=== PATIENT | male | born 1985 | race Caucasian/White ===

== ENCOUNTER 2017-11-30 07:31 | Emergency (ER) | payer SELFPAY ==
[2017-11-30 07:44] VITALS: BP 132/68; PULSE 102; TEMP 100.2
[2017-11-30] MEDS ORDERED: IBUPROFEN 600 MG TAB PO STA (08:35)
[2017-11-30] MEDS ORDERED: ACETAMINOPHEN TAB 500 MG TAB PO STA (08:35)
--- NOTE | 2017-11-30 08:41 | ED ---
General Adult HPI - General Chief complaint: Back Pain/Injury Stated complaint: Back pain/cough Time Seen by Provider: 11/30/17 08:28 Source: patient, RN notes reviewed Mode of arrival: wheelchair Limitations: no limitations - History of Present Illness Initial comments: 32-year-old male presents emergency Department with chief complaint of cough and congestion low back pain fevers. He states he's been sick since Wednesday. He states he took NyQuil last night when he woke up today with a backache. He has chronic back pain and states it feels as if it flared up. He states that he has not had any other symptoms with this. He denies any nausea vomiting. He states that he is much like his chronic typical back pain. He states that he is smoker. She does admit to a cough with some production. Patient denies any other symptoms at this time. No Motrin Tylenol. Patient denies any recent shortness of breath, chest pain, abdominal pain, nausea vomiting, numbness or tingling, dysuria or hematuria, constipation or diarrhea, headaches or visual changes, or any other current symptoms. - Related Data Home Medications Medication Instructions Recorded Confirmed Acetaminophen Tab [Tylenol Tab] 650 mg PO Q6H PRN 11/30/17 11/30/17 Dm/Acetaminophen/Doxylamine [Vicks 10 ml PO Q6H PRN 11/30/17 11/30/17 Nyquil Cold & Flu Liquid] Multivitamin [Men's Multi-Vitamin] 1 tab PO DAILY 11/30/17 11/30/17 Phenylephrine/Dm/Acetaminop/GG 10 ml PO Q6H PRN 11/30/17 11/30/17 [Vicks Dayquil Severe Cold-Flu] Previous Rx's Medication Instructions Recorded Ibuprofen [Motrin] 600 mg PO Q6HR PRN #20 tab 11/30/17 Orphenadrine [Norflex] 100 mg PO Q12H #10 tablet.er 11/30/17 Allergies Allergy/AdvReac Type Severity Reaction Status Date / Time No Known Allergies Allergy Verified 11/30/17 08:04 Review of Systems ROS Statement: Those systems with pertinent positive or pertinent negative responses have been documented in the HPI. ROS Other: All systems not noted in ROS Statement are negative. Past Medical History Additional Past Medical History / Comment(s): back pain History of Any Multi-Drug Resistant Organisms: None Reported Past Surgical History: No Surgical Hx Reported Past Psychological History: No Psychological Hx Reported Smoking Status: Current every day smoker Past Alcohol Use History: Occasional Past Drug Use History: Marijuana General Exam - General Exam Comments Initial Comments: General exam: Alert, active, comfortable in no apparent distress Head: Normocephalic Eyes: Normal reaction of pupils, equal size, normal range of extraocular motion Ears: normal external ear canals, pink tympanic membranes with normal cone of light Nose: clear with pink turbinates Throat: no erythema or exudates with normal sized tonsils Neck: no masses, no nuchal rigidity Chest: no chest wall deformity Lungs: equal air entry with no crackles or wheeze CVS: S1 and S2 normal with no audible mumurs, regular rhythm Abdomen: no hepatosplenomegaly, normal bowel sounds, no guarding or rigidity Spine: no scoliosis or deformity. No vertebral tenderness. No paraspinal tenderness. Inspection. Full range of motion. Skin: no rashes Neurological: No focal deficits, tone is normal in all 4 extremities Limitations: no limitations Course Vital Signs 11/30/17 11/30/17 07:42 08:55 Temperature 100.2 F H Pulse Rate 102 H Respiratory 20 18 Rate Blood Pressure 132/68 O2 Sat by Pulse 97 Oximetry Medical Decision Making - Medical Decision Making 32-year-old male presents emergency Department chief complaint of cough and congestion. At this time patient's influenza is positive. We discussed most likely lumbar strain along with this. We'll start him on muscle relaxers and Motrin for home for the back pain. We will also informed me: The patient with Tamiflu but we did discuss [id number] treatment. We discussed return parameters and follow-up and all questions. Patient stated the Rafi is given this plan. He will be discharged. - Lab Data Lab Results 11/30/17 Range/Units 08:55 Influenza Type A RNA Detected H (Not Detectd) Influenza Type B (PCR) Not Detected (Not Detectd) - Radiology Data Radiology results: report reviewed, image reviewed Disposition Clinical Impression: Influenza A, Lumbar strain Disposition: HOME SELF-CARE Condition: Stable Instructions: Acute Low Back Pain (ED), Influenza (ED) Additional Instructions: Please use medication as discussed. Please follow up with family doctor if symptoms have not improved over the next two days. Please return to the emergency room if your symptoms increase or worsen or for any other concerns. Prescriptions: Ibuprofen [Motrin] 600 mg PO Q6HR PRN #20 tab PRN Reason: Pain Orphenadrine [Norflex] 100 mg PO Q12H #10 tablet.er Referrals: Dayne Nails MD [Primary Care Provider] - 1-2 days Time of Disposition: 09:38
[2017-11-30 08:56] VITALS: RESP 18
--- NOTE | 2017-11-30 09:28 | XR ---
EXAMINATION TYPE: XR chest 2V DATE OF EXAM: 11/30/2017 COMPARISON: NONE HISTORY: Body ache, headache, and weakness TECHNIQUE: Frontal and lateral views of the chest are obtained. FINDINGS: There is no focal air space opacity, pleural effusion, or pneumothorax seen. The cardiac silhouette size is within normal limits. The osseous structures are intact. IMPRESSION: No acute cardiopulmonary process.
== END 2017-11-30 09:42 | disposition home or self-care (01) ==
LOC: EC 07:31
DX: S39.012A Strain of muscle, fascia and tendon of lower back, initial encounter (principal); J10.1 Influenza due to other identified influenza virus with other respiratory manifestations; F17.200 Nicotine dependence, unspecified, uncomplicated; Z79.899 Other long term (current) drug therapy
CPT/HCPCS: 71046; 87502; 99283

== ENCOUNTER 2019-07-09 15:57 | Emergency (ER) | payer OTHER ==
[2019-07-09 18:28] LABS: Basophils % (A) 0 %; Eosinophils # (A) 0.2 k/uL (0-0.7); Eosinophils % (A) 2 %; HCT 42.9 % (39.0-53.0); HGB 14.8 gm/dL (13.0-17.5); Lymphocytes # (A) 3.5 k/uL (1.0-4.8); Lymphocytes % (A) 31 %; MCH 30.1 pg (25.0-35.0); MCHC 34.5 g/dL (31.0-37.0); MCV 87.4 fL (80.0-100.0); Mean Platelet Volume 7.3; Monocytes # (A) 0.4 k/uL (0-1.0); Monocytes % (A) 4 %; Neutrophils % (A) 62 %; Platelet Count 260 k/uL (150-450); RBC 4.91 m/uL (4.30-5.90); RDW 14.8 % (11.5-15.5); WBC 11.3 k/uL (3.8-10.6)
[2019-07-09 18:36] LABS: African American GFR (CKD) >90 (>60 ml/min/1.73 sqM); Alcohol <10 mg/dL; Anion Gap 7 mmol/L; Blood Urea Nitrogen 10 mg/dL (9-20); Carbon Dioxide 27 mmol/L (22-30); Chloride 106 mmol/L (98-107); Glucose 81 mg/dL (74-99); Sodium 140 mmol/L (137-145)
--- NOTE | 2019-07-09 18:45 | CT ---
EXAMINATION TYPE: CT angio neck DATE OF EXAM: 07/09/2019 COMPARISON: None HISTORY: 33-year-old male with pain after hanging injury. TECHNIQUE: Contiguous axial scanning of the neck performed with IV Contrast, patient injected with 50 mL of Isovue 370. Coronal/sagittal MIP reconstructions performed. 3-D reconstructions generated on a dedicated independent workstation. CT DLP: 624.1 mGycm Automated exposure control for dose reduction was used. FINDINGS: Conventional arch vessel branching anatomy. The left vertebral artery is dominant. Both vertebral arteries are patent throughout their course. The bilateral common and internal carotid arteries are patent. The airway appears patent. There is adenoidal soft tissue hypertrophy as well as bilateral palatine tonsillar and lingual tonsil lar hypertrophy. No soft tissue air is seen. IMPRESSION: DOMINANT LEFT VERTEBRAL ARTERY. WIDELY PATENT CAROTID AND VERTEBRAL ARTERIES OF THE NECK. INCIDENTAL LYMPHOID TISSUE HYPERTROPHY INVOLVING THE ADENOIDS, PALATINE, AND LINGUAL TONSILS. AIRWAY OTHERWISE PATENT.
--- NOTE | 2019-07-10 00:54 | ED ---
Psych HPI - General Chief Complaint: Psychiatric Symptoms Stated Complaint: Mental Health Time Seen by Provider: 07/09/19 16:05 Source: patient Mode of arrival: ambulatory Limitations: no limitations - History of Present Illness Initial Comments: The patient is a 33-year-old male who presents to the emergency department with reported suicidal ideations and attempt. The patient admits to a long-standing history of depression. States over the past several years he has become more depressed and as of the past several days he states he can no longer tolerate living. Reports that he did attempt to hang himself at home with a rope. When he was unsuccessful, he decided drive himself into the emergency department for evaluation. He denies any other attempts. States he has been hospitalized once for depression. Admits that it is due to several factors. He does not take any medications. He does not see a therapist in office. He denies any homicidal ideations. Denies any drug use. Denies any additional symptoms to include headache, neck pain or stiffness. No vision changes, unilateral numbness or weakness. No chest pain or shortness of breath. There are no other alleviating, precipitating or modifying factors - Related Data Home Medications Medication Instructions Recorded Confirmed No Known Home Medications 07/09/19 07/09/19 Allergies Allergy/AdvReac Type Severity Reaction Status Date / Time No Known Allergies Allergy Verified 07/09/19 16:17 Review of Systems ROS Statement: Those systems with pertinent positive or pertinent negative responses have been documented in the HPI. ROS Other: All systems not noted in ROS Statement are negative. Past Medical History Additional Past Medical History / Comment(s): back pain History of Any Multi-Drug Resistant Organisms: None Reported Past Surgical History: No Surgical Hx Reported Past Psychological History: No Psychological Hx Reported Smoking Status: Current every day smoker Past Alcohol Use History: Occasional Past Drug Use History: Marijuana General Exam Limitations: no limitations General appearance: alert, in no apparent distress Head exam: Present: atraumatic, normocephalic, normal inspection Eye exam: Present: normal appearance, PERRL, EOMI. Absent: scleral icterus, conjunctival injection, periorbital swelling ENT exam: Present: normal exam, mucous membranes moist Neck exam: Present: normal inspection, other (no ligature mustafa, no crepetance). Absent: tenderness, meningismus, lymphadenopathy Respiratory exam: Present: normal lung sounds bilaterally. Absent: respiratory distress, wheezes, rales, rhonchi, stridor Cardiovascular Exam: Present: regular rate, normal rhythm, normal heart sounds. Absent: systolic murmur, diastolic murmur, rubs, gallop, clicks GI/Abdominal exam: Present: soft, normal bowel sounds. Absent: distended, tenderness, guarding, rebound, rigid Extremities exam: Present: normal inspection, full ROM, normal capillary refill. Absent: tenderness, pedal edema, joint swelling, calf tenderness Back exam: Present: normal inspection Neurological exam: Present: alert, oriented X3, CN II-XII intact Psychiatric exam: Present: depressed, suicidal ideation Skin exam: Present: warm, dry, intact, normal color. Absent: rash Course Vital Signs 07/09/19 07/09/19 07/09/19 16:05 18:57 20:07 Temperature 98.2 F 98.2 F Pulse Rate 70 57 L 65 Respiratory 18 18 16 Rate Blood Pressure 148/76 104/57 135/71 O2 Sat by Pulse 99 95 99 Oximetry 07/10/19 01:38 Temperature 98 F Pulse Rate 62 Respiratory 18 Rate Blood Pressure 140/69 O2 Sat by Pulse 97 Oximetry Medical Decision Making - Medical Decision Making Upon arrival the patient is placed into room 13. A thorough history and physical exam was performed. Evaluation does not demonstrate any external signs of trauma. I did recommend laboratory studies and a CT angios of the patient's neck. The patient does agree to this. Upon return of the results I did discuss them with the patient. CT of the neck does not demonstrate any acute findings. I did discuss this with the patient. The patient was then stable for EPS evaluation. I did fill out the clinical cert. The patient is currently awaiting placement a psychiatric facility - Lab Data Result diagrams: 07/09/19 18:15 07/09/19 18:15 Lab Results 07/09/19 07/09/19 Range/Units 18:15 18:15 WBC 11.3 H (3.8-10.6) k/uL RBC 4.91 (4.30-5.90) m/uL Hgb 14.8 (13.0-17.5) gm/dL Hct 42.9 (39.0-53.0) % MCV 87.4 (80.0-100.0) fL MCH 30.1 (25.0-35.0) pg MCHC 34.5 (31.0-37.0) g/dL RDW 14.8 (11.5-15.5) % Plt Count 260 (150-450) k/uL Neutrophils % 62 % Lymphocytes % 31 % Monocytes % 4 % Eosinophils % 2 % Basophils % 0 % Neutrophils # 7.0 (1.3-7.7) k/uL Lymphocytes # 3.5 (1.0-4.8) k/uL Monocytes # 0.4 (0-1.0) k/uL Eosinophils # 0.2 (0-0.7) k/uL Basophils # 0.0 (0-0.2) k/uL Sodium 140 (137-145) mmol/L Potassium 4.0 (3.5-5.1) mmol/L Chloride 106 (98-107) mmol/L Carbon Dioxide 27 (22-30) mmol/L Anion Gap 7 mmol/L BUN 10 (9-20) mg/dL Creatinine 0.81 (0.66-1.25) mg/dL Est GFR (CKD-EPI)AfAm >90 (>60 ml/min/1.73 sqM) Est GFR (CKD-EPI)NonAf >90 (>60 ml/min/1.73 sqM) Glucose 81 (74-99) mg/dL Calcium 9.0 (8.4-10.2) mg/dL Serum Alcohol <10 mg/dL Disposition Clinical Impression: Depression, Suicidal ideation Disposition: TRANSFER TO PSYCH HOSP/UNIT Condition: Serious Is patient prescribed a controlled substance at d/c from ED?: No Referrals: None,Stated [Primary Care Provider] - 1-2 days
[2019-07-10 01:39] VITALS: BP 140/69; PULSE 62; RESP 18; TEMP 98
== END 2019-07-10 01:41 ==
LOC: EC 15:57
DX: F32.9 Major depressive disorder, single episode, unspecified (principal); R45.851 Suicidal ideations; F17.200 Nicotine dependence, unspecified, uncomplicated
CPT/HCPCS: 82075; 36415; 80048; 85025; 80320; 70498; 99285; Q9967

== ENCOUNTER 2022-09-14 19:37 | Emergency (ER) | payer BC, OTHER ==
[2022-09-14 20:13] VITALS: RESP 20; TEMP 98.2
[2022-09-14] MEDS ORDERED: ORPHENADRINE 30 MG/ML 2 ML VIAL IVP STA (22:26)
[2022-09-14 22:42] LABS: Appearance,Urine Clear (Clear); Bilirubin,Urine Negative (Negative); Blood,Urine Negative (Negative); Color,Urine Yellow; Glucose,Urine (UA) Negative (Negative); Ketones,Urine Negative (Negative); Leukocyte Esterase,Urine Negative (Negative); Nitrite,Urine Negative (Negative); PH, Urine 5.5 (5.0-8.0); Protein,Urine Negative (Negative); Specific Gravity,Urine 1.021 (1.001-1.035); Urobilinogen,Urine <2.0 mg/dL (<2.0)
[2022-09-14 22:42] LABS: Basophils # (A) 0.1 k/uL (0-0.2); Basophils % (A) 1 %; Eosinophils # (A) 0.2 k/uL (0-0.7); Eosinophils % (A) 2 %; HCT 45.7 % (39.0-53.0); HGB 16.2 gm/dL (13.0-17.5); Lymphocytes % (A) 32 %; MCH 30.7 pg (25.0-35.0); MCHC 35.3 g/dL (31.0-37.0); MCV 86.7 fL (80.0-100.0); Mean Platelet Volume 8.3; Monocytes # (A) 0.5 k/uL (0-1.0); Monocytes % (A) 4 %; Neutrophils # (A) 7.6 k/uL (1.3-7.7); Neutrophils % (A) 61 %; Platelet Count 292 k/uL (150-450); RBC 5.27 m/uL (4.30-5.90); RDW 13.4 % (11.5-15.5); WBC 12.5 k/uL (3.8-10.6)
--- NOTE | 2022-09-14 22:52 | ED ---
Abdominal Pain HPI - General Chief Complaint: Abdominal Pain Stated Complaint: Side Pain Time Seen by Provider: 09/14/22 22:02 Source: patient, family, RN notes reviewed Mode of arrival: ambulatory Limitations: no limitations - History of Present Illness Initial Comments: This is a 36-year-old male who presents to the emergency department for abdominal pain. States that he has had an ongoing issue for the last several months where he will get pain and spasms in both of his sides. States that this is closer to the upper side of his abdomen. There is no trigger or pattern for this, and it may happen several times in 1 week or he may go several weeks without experiencing any episodes. Additionally, he often experiences pain in one side at a time, and each episode usually lasts for a couple of minutes. Today at work, he had pain in both sides and felt like it physically pulled him down. This episode lasted for 1.5 hours and he has never experienced anything like this in the past. At this time, the pain has subsided, however he is concerned about how much more intense this episode was compared to others. Denies any fevers, chills, sore throat, cough, dyspnea, chest pain, palpitations, nausea, vomiting, diarrhea, back pain, or headaches. MD Complaint: abdominal pain, flank pain - Related Data Previous Rx's Medication Instructions Recorded Baclofen 5 mg PO TID PRN #20 tablet 09/15/22 Allergies Allergy/AdvReac Type Severity Reaction Status Date / Time No Known Allergies Allergy Verified 07/09/19 16:17 Review of Systems ROS Statement: Those systems with pertinent positive or pertinent negative responses have been documented in the HPI. ROS Other: All systems not noted in ROS Statement are negative. Past Medical History Past Medical History: Hypertension Additional Past Medical History / Comment(s): back pain History of Any Multi-Drug Resistant Organisms: None Reported Past Surgical History: No Surgical Hx Reported Past Psychological History: No Psychological Hx Reported Past Alcohol Use History: Occasional Past Drug Use History: Marijuana General Exam Limitations: no limitations General appearance: alert, in no apparent distress Head exam: Present: atraumatic, normocephalic, normal inspection Respiratory exam: Present: normal lung sounds bilaterally. Absent: respiratory distress, wheezes, rales, rhonchi, stridor Cardiovascular Exam: Present: regular rate, normal rhythm, normal heart sounds. Absent: systolic murmur, diastolic murmur, rubs, gallop, clicks GI/Abdominal exam: Present: soft, normal bowel sounds. Absent: distended, tenderness, guarding, rebound, rigid Back exam: Present: normal inspection, full ROM. Absent: tenderness, CVA tenderness (R), CVA tenderness (L) Neurological exam: Present: alert, oriented X3, CN II-XII intact Psychiatric exam: Present: normal affect, normal mood Skin exam: Present: warm, dry, intact, normal color. Absent: rash Course Vital Signs 09/14/22 09/15/22 20:10 01:29 Temperature 98.2 F Pulse Rate 105 H 102 H Respiratory 20 20 Rate Blood Pressure 118/73 120/87 O2 Sat by Pulse 97 98 Oximetry Medical Decision Making - Medical Decision Making This is a 36 year old male who presents to the emergency department for pain in his sides. Lab work reveals mild leukocytosis without any shift and a mild increase in pancreatic enzymes. Lab work was otherwise nonactionable. He was given a dose of Norflex in the emergency department, however because the patient's pain had improved, it is unclear if this was effective or not. Computed tomography scan of the abdomen and pelvis obtained for further evaluation, however this did not demonstrate any acute findings. Prescription for baclofen provided, advised he try taking one of these if he experiences an episode in the future. Advised he take his first dose at night until he knows how it affects him, as it may be sedating. Advised that he will need to follow up with his primary care provider to further discuss this issue and any artem tional testing that can be done. Return precautions reviewed in depth, the patient is instructed to return to the emergency department with any new, worsening, or concerning symptoms. Patient verbalized understanding. This case was discussed in detail with the attending ED physician. Presentation, findings, and treatment plan discussed in detail as well. - Lab Data Result diagrams: 09/14/22 22:20 09/14/22 23:05 Lab Results 09/14/22 09/14/22 09/14/22 Range/Units 22:20 22:30 23:05 WBC 12.5 H (3.8-10.6) k/uL RBC 5.27 (4.30-5.90) m/uL Hgb 16.2 (13.0-17.5) gm/dL Hct 45.7 (39.0-53.0) % MCV 86.7 (80.0-100.0) fL MCH 30.7 (25.0-35.0) pg MCHC 35.3 (31.0-37.0) g/dL RDW 13.4 (11.5-15.5) % Plt Count 292 (150-450) k/uL MPV 8.3 Neutrophils % 61 % Lymphocytes % 32 % Monocytes % 4 % Eosinophils % 2 % Basophils % 1 % Neutrophils # 7.6 (1.3-7.7) k/uL Lymphocytes # 4.0 (1.0-4.8) k/uL Monocytes # 0.5 (0-1.0) k/uL Eosinophils # 0.2 (0-0.7) k/uL Basophils # 0.1 (0-0.2) k/uL Sodium 137 (137-145) mmol/L Potassium 4.3 (3.5-5.1) mmol/L Chloride 106 (98-107) mmol/L Carbon Dioxide 26 (22-30) mmol/L Anion Gap 5 mmol/L BUN 10 (9-20) mg/dL Creatinine 0.75 (0.66-1.25) mg/dL Est GFR (CKD-EPI)AfAm >90 (>60 ml/min/1.73 sqM) Est GFR (CKD-EPI)NonAf >90 (>60 ml/min/1.73 sqM) Glucose 90 (74-99) mg/dL Calcium 9.3 (8.4-10.2) mg/dL Total Bilirubin 0.4 (0.2-1.3) mg/dL AST 38 (17-59) U/L ALT 55 H (4-49) U/L Alkaline Phosphatase 61 (38-126) U/L Troponin I (0.000-0.034) ng/mL Total Protein 7.5 (6.3-8.2) g/dL Albumin 4.7 (3.5-5.0) g/dL Amylase 129 H (30-110) U/L Lipase 382 H (23-300) U/L TSH 2.400 (0.465-4.680) mIU/L Urine Color Yellow Urine Appearance Clear (Clear) Urine pH 5.5 (5.0-8.0) Ur Specific [place] 1.021 (1.001-1.035) Urine Protein Negative (Negative) Urine Glucose (UA) Negative (Negative) Urine Ketones Negative (Negative) Urine Blood Negative (Negative) Urine Nitrite Negative (Negative) Urine Bilirubin Negative (Negative) Urine Urobilinogen <2.0 (<2.0) mg/dL Ur Leukocyte Esterase Negative (Negative) 09/14/22 Range/Units 23:05 WBC (3.8-10.6) k/uL RBC (4.30-5.90) m/uL Hgb (13.0-17.5) gm/dL Hct (39.0-53.0) % MCV (80.0-100.0) fL MCH (25.0-35.0) pg MCHC (31.0-37.0) g/dL RDW (11.5-15.5) % Plt Count (150-450) k/uL MPV Neutrophils % % Lymphocytes % % Monocytes % % Eosinophils % % Basophils % % Neutrophils # (1.3-7.7) k/uL Lymphocytes # (1.0-4.8) k/uL Monocytes # (0-1.0) k/uL Eosinophils # (0-0.7) k/uL Basophils # (0-0.2) k/uL Sodium (137-145) mmol/L Potassium (3.5-5.1) mmol/L Chloride (98-107) mmol/L Carbon Dioxide (22-30) mmol/L Anion Gap mmol/L BUN (9-20) mg/dL Creatinine (0.66-1.25) mg/dL Est GFR (CKD-EPI)AfAm (>60 ml/min/1.73 sqM) Est GFR (CKD-EPI)NonAf (>60 ml/min/1.73 sqM) Glucose (74-99) mg/dL Calcium (8.4-10.2) mg/dL Total Bilirubin (0.2-1.3) mg/dL AST (17-59) U/L ALT (4-49) U/L Alkaline Phosphatase (38-126) U/L Troponin I <0.012 (0.000-0.034) ng/mL Total Protein (6.3-8.2) g/dL Albumin (3.5-5.0) g/dL Amylase (30-110) U/L Lipase (23-300) U/L TSH (0.465-4.680) mIU/L Urine Color Urine Appearance (Clear) Urine pH (5.0-8.0) Ur Specific [place] (1.001-1.035) Urine Protein (Negative) Urine Glucose (UA) (Negative) Urine Ketones (Negative) Urine Blood (Negative) Urine Nitrite (Negative) Urine Bilirubin (Negative) Urine Urobilinogen (<2.0) mg/dL Ur Leukocyte Esterase (Negative) - Radiology Data Radiology results: report reviewed, image reviewed Disposition Clinical Impression: Spasm of abdominal muscles Disposition: HOME SELF-CARE Instructions (If sedation given, give patient instructions): Muscle Spasm (ED) Additional Instructions: Return to the emergency department with any new, worsening, or concerning symptoms. Take the baclofen up to 3 times daily as needed for muscle spasms, you may take 1-2 tablets at a time. Take your first dose at night until you know how it affects you, as it may be sedating. Follow up with your primary car e provider in 1-2 days. Prescriptions: Baclofen 5 mg PO TID PRN #20 tablet PRN Reason: Spasms Is patient prescribed a controlled substance at d/c from ED?: No Referrals: Mendy Holloway PAC [Primary Care Provider] - 1-2 days
[2022-09-14 23:28] LABS: ALT 55 U/L (4-49); AST 38 U/L (17-59); African American GFR (CKD) >90 (>60 ml/min/1.73 sqM); Albumin 4.7 g/dL (3.5-5.0); Alkaline Phosphatase 61 U/L (38-126); Amylase 129 U/L (30-110); Anion Gap 5 mmol/L; Blood Urea Nitrogen 10 mg/dL (9-20); Calcium 9.3 mg/dL (8.4-10.2); Carbon Dioxide 26 mmol/L (22-30); Chloride 106 mmol/L (98-107); Glucose 90 mg/dL (74-99); Lipase 382 U/L (23-300); Non-African American GFR(CKD) >90 (>60 ml/min/1.73 sqM); Potassium 4.3 mmol/L (3.5-5.1); Sodium 137 mmol/L (137-145); Total Bilirubin 0.4 mg/dL (0.2-1.3); Total Protein 7.5 g/dL (6.3-8.2)
--- NOTE | 2022-09-15 00:45 | CT ---
EXAMINATION TYPE: CT abdomen pelvis w con DATE OF EXAM: 09/15/2022 COMPARISON: None HISTORY: PAIGE FLANK PAIN CT DLP: 2011.7 mGycm Automated exposure control for dose reduction was used. CONTRAST: Performed with IV Contrast, patient injected with 100 mL of Isovue 300. The lung bases are clear. No pleural effusion. Heart size is normal. No pericardial effusion. The jose angel er is intact. Gallbladder is intact. The bile ducts are not dilated. Spleen and stomach pancreas appe ar intact. Liver is enlarged and measures 22 cm. There is no adrenal mass. Kidneys show satisfactory contrast opacification. No hydronephrosis. Ureter s are not dilated. No retroperitoneal adenopathy. No inguinal hernia. No free fluid in the pelvis. Ur inary bladder is almost empty. There is no mesenteric edema. No ascites or free air. No sign of a bowel obstruction. Appendix appear s posterior and appears normal. The lumbar vertebrae have normal spacing and alignment. No compressio n fracture. Posterior elements are intact. The bony pelvis is intact. The hip joints are intact. IMPRESSION: Hepatomegaly. No dilated ducts. No evidence of renal stone or obstruction.
[2022-09-15 01:30] VITALS: BP 120/87; PULSE 102
== END 2022-09-15 01:30 | disposition home or self-care (01) ==
LOC: EC 19:37
DX: M62.838 Other muscle spasm (principal); R10.9 Unspecified abdominal pain; D72.829 Elevated white blood cell count, unspecified; I10 Essential (primary) hypertension
CPT/HCPCS: 36415; 80053; 84443; 82150; 83690; 84484; 85025; 81003; 99284; 96374; J2360; 74177

== ENCOUNTER 2023-05-03 00:23 | Emergency (ER) | payer BC, OTHER ==
[2023-05-03 00:27] VITALS: RESP 18; TEMP 97.9
[2023-05-03] MEDS ORDERED: CEPHALEXIN 500 MG CAP PO STA (02:19)
--- NOTE | 2023-05-03 03:09 | ED ---
General Adult HPI - General Chief complaint: Skin/Abscess/Foreign Body Stated complaint: Foot injury Time Seen by Provider: 05/03/23 02:07 Source: patient Mode of arrival: ambulatory Limitations: no limitations - History of Present Illness Initial comments: This is a 37-year-old male with no past medical history presents emergency department for a right foot pain. The patient stated that he thought he stepped on some sort of debris approximately one and half weeks ago that went into his right foot. The patient stated that he cleaned this area thoroughly when the puncture wound occurred but stated that throughout the last week and a half, the patient had continued pain with ambulation secondary to pain over this area. The patient stated that he attempted to soak the area in question but stated continued pain and therefore came to the emergency department for evaluation. The patient denied any fever, chills as well as any nausea and vomiting. The patient also denied any redness or swelling to the area but did note that it was tender on evaluation. The patient denied any other acute pain or complaint at this time. Tetanus was up-to-date at this time. - Related Data Previous Rx's Medication Instructions Recorded Baclofen 5 mg PO TID #15 tab 09/15/22 Baclofen 5 mg PO TID PRN #20 tablet 09/15/22 Cephalexin [Keflex] 500 mg PO Q6HR 1 Days #20 cap 05/03/23 Allergies Allergy/AdvReac Type Severity Reaction Status Date / Time No Known Allergies Allergy Verified 05/03/23 00:27 Review of Systems ROS Statement: Those systems with pertinent positive or pertinent negative responses have been documented in the HPI. ROS Other: All systems not noted in ROS Statement are negative. Past Medical History Past Medical History: Hypertension Additional Past Medical History / Comment(s): back pain History of Any Multi-Drug Resistant Organisms: None Reported Past Surgical History: No Surgical Hx Reported Past Psychological History: No Psychological Hx Reported Smoking Status: Current every day smoker Past Alcohol Use History: Occasional Past Drug Use History: Marijuana General Exam Limitations: no limitations General appearance: alert, in no apparent distress, obese Head exam: Present: atraumatic, normocephalic, normal inspection Eye exam: Present: normal appearance, PERRL Pupils: Present: normal accommodation ENT exam: Present: normal exam, normal oropharynx, mucous membranes moist Neck exam: Present: normal inspection, full ROM Respiratory exam: Present: normal lung sounds bilaterally Cardiovascular Exam: Present: regular rate, normal rhythm, normal heart sounds GI/Abdominal exam: Present: soft, normal bowel sounds Extremities exam: Present: normal inspection, full ROM, other (Puncture wound noted on the bottom of the right foot without erythema or induration) Back exam: Present: normal inspection, full ROM Neurological exam: Present: alert, oriented X3, CN II-XII intact Psychiatric exam: Present: normal affect, normal mood Skin exam: Present: warm, dry Course Vital Signs 05/03/23 05/03/23 00:25 03:11 Temperature 97.9 F Pulse Rate 69 56 L Respiratory 18 18 Rate Blood Pressure 136/73 121/78 O2 Sat by Pulse 94 L 96 Oximetry Medical Decision Making - Medical Decision Making Was pt. sent in by a medical professional or institution (ARELY Steiner, CERTIFIED NURSE AIDE, urgent care, hospital, or assisted...) When possible be specific @ -No Did you speak to anyone other than the patient for history (EMS, parent, family, police, friend...)? What history was obtained from this source @ -No Did you review nursing and triage notes (agree or disagree)? Why? @ -I reviewed and agree with nursing and triage notes Were old charts reviewed (outside hosp., previous admission, EMS record, old EKG, old radiological studies, urgent care reports/EKG's, assisted records)? Report findings @ -No old charts were reviewed Differential Diagnosis (chest pain, altered mental status, abdominal pain women, abdominal pain men, vaginal bleeding, weakness, fever, dyspnea, syncope, headache, dizziness, GI bleed, back pain, seizure, CVA, palpatations, mental health)? @ -Retained foreign body, cellulitis, abscess EKG interpreted by me (3pts min.). @ -None X-rays interpreted by me (1pt min.). @ -X-rays the right foot was obtained and was interpreted by myself showing no foreign body noted. CT interpreted by me (1pt min.). @ -None done U/S interpreted by me (1pt. min.). @ -None done What testing was considered but not performed or refused? (CT, X-rays, U/S, labs)? Why? @ -None What meds were considered but not given or refused? Why? @ -None Did you discuss the management of the patient with other professionals (val olmstead i.e. , PA, CERTIFIED NURSE AIDE, lab, RT, psych nurse, family welfare social work professor, bakery and deli sales manager, teacher, staff weapons officer, showcase trimmer)? Give summary @ -No Was smoking cessation discussed for >3mins.? @ -No Was critical care preformed (if so, how long)? @ -No Were there social determinants of health that impacted care today? How? (Homelessness, low income, unemployed, alcoholism, drug addiction, transportation, low edu. Level, literacy, decrease access to med. care, skilled nursing, rehab)? @ -No Was there de-escalation of care discussed even if they declined (Discuss DNR or withdrawal of care, Hospice)? DNR status @ -No What co-morbidities impacted this encounter? (DM, HTN, Smoking, COPD, CAD, Cancer, CVA, ARF, Chemo, Hep., AIDS, mental health diagnosis, sleep apnea, morbid obesity)? @ -None Was patient admitted / discharged? Hospital course, mention meds given and route, prescriptions, significant lab abnormalities, going to OR and other pertinent info. @ -The patient was seen and evaluated emergency department. Physical exam, the patient was resting in bed without any acute distress. Vital signs admission were stable. Due to the nature the patient's complaints, x-ray of the right foot was obtained and was negative for foreign body. The patient did receive a dose of Keflex in the emergency department as well as a prescription for Keflex to be taken at home. The area in question did not appear to be significantly infected and the patient was advised to continue to keep the area clean and to take his antibiotics as prescribed. The patient was also advised to follow-up with his primary care physician for further workup and evaluation. The patient was agreeable to this and all his questions were answered. The patient was discharged home in stable condition. Undiagnosed new problem with uncertain prognosis? @ -No Drug Therapy requiring intensive monitoring for toxicity (Heparin, Nitro, Insulin, Cardizem)? @ -No Were any procedures done? @ -No Diagnosis/symptom? @ -Right foot puncture wound Acute, or Chronic, or Acute on Chronic? @ -Acute Uncomplicated (without systemic symptoms) or Complicated (systemic symptoms)? @ -Uncomplicated Side effects of treatment? @ -No Exacerbation, Progression, or Severe Exacerbation? @ -No Poses a threat to life or bodily function? How? (Chest pain, [place], [place], pneumonia, PE, COPD, DKA, ARF, appy, cholecystitis, CVA, Diverticulitis, Homicidal, Suicidal, threat to staff... and all critical care pts) @ -No Disposition Clinical Impression: Puncture wound Disposition: HOME SELF-CARE Condition: Stable Instructions (If sedation given, give patient instructions): Puncture Wound (DC) Prescriptions: Cephalexin [Keflex] 500 mg PO Q6HR 1 Days #20 cap Is patient prescribed a controlled substance at d/c from ED?: No Referrals: Mendy Holloway, PAC [Primary Care Provider] - 1-2 days Time of Disposition: 03:00
[2023-05-03 03:19] VITALS: BP 121/78; PULSE 56
--- NOTE | 2023-05-03 04:04 | XR ---
EXAM: XR Right Foot Complete, 2 Views CLINICAL HISTORY: ITS.REASON XR Reason: Foreign body TECHNIQUE: Frontal and lateral views of the right foot. COMPARISON: No relevant prior studies available. FINDINGS: Bones/joints: Unremarkable. No acute fracture. No dislocation. Soft tissues: Unremarkable. No radiopaque foreign body. IMPRESSION: No acute fracture or traumatic malalignment to the right foot. No radiopaque foreign body.
== END 2023-05-03 03:25 | disposition home or self-care (01) ==
LOC: EC 00:23
DX: S91.331A Puncture wound without foreign body, right foot, initial encounter (principal); I10 Essential (primary) hypertension; F17.200 Nicotine dependence, unspecified, uncomplicated; F12.90 Cannabis use, unspecified, uncomplicated; W45.8XXA Other foreign body or object entering through skin, initial encounter
CPT/HCPCS: 99283